=== PATIENT | female | born 1970 | race African-American/Black ===

== ENCOUNTER 2020-02-11 14:44 | Outpatient (CLI) | payer BC, SELFPAY ==
--- NOTE | ~2020-02-11 | US_ITS ---
EXAMINATION: US pelvic complete w TV DATE: 02/11/2020 15:51 INDICATION: Menorrhagia Comparison:No prior studies for comparison. TECHNIQUE: Multiple transabdominal and endovaginal sonographic images of the pelvis performed. FINDINGS: The uterus measures 11.5 x 7.4 x 10.9 cm. There are multiple uterine fibroids including a 7 .7 x 5.2 x 7 cm fibroid and a pedunculated 4.7 x 4.1 x 1 4.1 cm fibroid. The endometrial complex is o bscured by fibroid changes. The right ovary measures 6.1 x 7.2 x 6.1 cm and the left ovary measures 4.9 x 3.3 x 2.7 cm.. There is a septated right ovarian cyst measuring 4.9 x 4.3 x 4.1 cm. There are small follicles in each ovary. There is no free fluid in the pelvis. There are no abnormal masses seen on either side. IMPRESSION: 1. Enlarged fibroid uterus. 2: Septated 4.9 cm right ovarian cyst. Recommend follow-up ultrasound in 4-6 weeks to assess for re solution. Reviewed, dictated and finalized at location A. IMPRESSION: 1. Enlarged fibroid uterus. 2: Septated 4.9 cm right ovarian cyst. Recommend follow-up ultrasound in 4-6 weeks to assess for resolution.
== END 2020-02-11 14:45 | disposition home or self-care (01) ==
PROVIDERS: Visit Provider Obstetrics & Gynecology
DX: D25.9 Leiomyoma of uterus, unspecified (principal); N83.201 Unspecified ovarian cyst, right side
CPT/HCPCS: 76830; 76856

== ENCOUNTER 2020-02-18 02:22 | Day surgery (SDC) | payer BC, SELFPAY ==
[2020-02-16 08:41] VITALS: BMI 32.9
[2020-02-18 11:10] VITALS: BP 132/82; PULSE 73; RESP 16; TEMP 36.4; O2SAT 100
[2020-02-18] MEDS: LACTATED RINGERS 1,000 ML 30 ML IV CONT (11:35)
[2020-02-18 11:48] LABS: Hematocrit 28.8 % (37.0-47.0); Hemoglobin 8.1 g/dL (12.0-15.0)
--- NOTE | 2020-02-18 11:54 | WPDANESEPPF ---
Anes - Initial Pre Proc Eval Procedure: Operation Date: 02/18/20 13:00 Proposed Procedures p Hysteroscopy, Dilation and Curettage, Possible Myosure - Nacho Garcia MD Date/Time: 02/18/20 11:54 Surgeon: Nacho Garcia MD Pre Op Diagnosis: abn uterine bleeding, fibroids Patient Data Age: 49 Gender: F Height: 5 ft 2 in Weight: 83 kg Last Vital Signs Temp 36.4 C 02/18/20 11:10 Pulse 73 02/18/20 11:10 Resp 16 02/18/20 11:10 BP 132/82 02/18/20 11:10 Pulse Ox 100 02/18/20 11:10 Allergies Allergy/AdvReac Type Severity Reaction Status Date / Time No Known Allergies Allergy Verified 02/18/20 11:16 Home Medications Medication Instructions Recorded Confirmed Type docusate sodium [Colace] 100 mg PO DAILY 02/16/20 02/18/20 History ferrous sulfate [iron] 325 mg PO BID 02/16/20 02/18/20 History spironolactone 100 mg PO BID 02/16/20 02/16/20 History Laboratory Tests 02/18/20 02/18/20 11:44 11:44 Hgb 8.1 g/dL L g/dL (12.0-15.0) Hct 28.8 % L % (37.0-47.0) Sodium Pending Potassium Pending Chloride Pending Carbon Dioxide Pending BUN Pending Creatinine Pending Estim Creat Clear Calc Pending Estimated GFR Pending Glucose Pending Calcium Pending Patient hx anesthesia problems: none Family hx anesthesia problems: none [facility] Past Medical History Medical History Anemia Fibroid uterus Menorrhagia Obesity Anes - Eval Final PreProcedure Day of Procedure 02/18/20 11:54 Patient weight: obese Heart: regular rate and rhythm Lungs: clear to auscultation Airway: Mallampati scale class 1 Neurological: alert and oriented Last oral intake: >/= 8 hours ASA classification: II Emergent: no Anesthetic plan: proceed Anesthesia type and monitoring: general GIVS and standard monitoring Informed Consent: The patient's anesthetic plan and its attendant risks and benefits were discussed with the patient/family/POA. Questions were solicited and answers provided to the satisfaction of the patient/family/POA.
--- NOTE | 2020-02-18 11:55 | PM.HPGS ---
History of Present Illness History of Present Illness Consent: Risks, benefits, and alternatives have been discussed and questions answered. Patient agrees to proceed with procedure. Chief complaint: abn uterine bleeding, fibroids Narrative: Elana Morgan is a 49 year old female new to office with heavy menstrual cycles. Patient reports cycles heavy for last couple of years. patient reports symptoms of fatigue, ice craving and occasional dizziness. PMFSH Past Medical History Medical History Anemia Obesity Meds Home Medications and Allergies Home Medications Medication Instructions Recorded Confirmed Type docusate sodium [Colace] 100 mg PO DAILY 02/16/20 02/18/20 History ferrous sulfate [iron] 325 mg PO BID 02/16/20 02/18/20 History spironolactone 100 mg PO BID 02/16/20 02/16/20 History Allergies Allergy/AdvReac Type Severity Reaction Status Date / Time No Known Allergies Allergy Verified 02/18/20 11:16 Vital Signs Vital Signs - 24 hr 02/18/20 11:10 Temperature 36.4 C Pulse Rate 73 Respiratory Rate 16 Blood Pressure 132/82 Pulse Oximetry 100 Exam Const: General: no acute distress Cardio: Rate: regular rate GI: GI Palp: Yes Soft to palpation : External Female Exam: normal external appearance Assessment and Plan Assessment and plan (1) Menorrhagia: Code(s): N92.0 - Excessive and frequent menstruation with regular cycle Status: Acute Assessment and Plan: Schedule for a hystersocopy dilation and curettage risk and benefits reviewed with patient in detail. (2) Fibroid uterus: Code(s): D25.9 - Leiomyoma of uterus, unspecified Status: Acute
[2020-02-18 12:00] LABS: Blood Urea Nitrogen 12 mg/dL (7-17); Calcium 8.7 mg/dL (8.4-10.2); Carbon Dioxide 25 mmol/L (22-30); Chloride 103 mmol/L (98-107); Estimated CRCL calculation 61 ml/min; Estimated Glomerular Filt Rate > 60; Glucose 106 mg/dL (65-105); Potassium 4.5 mmol/L (3.4-5.0); Sodium 136 mmol/L (137-145)
--- NOTE | 2020-02-18 13:09 | SUR.OPER ---
600 iv fluids in and 600 iv fluids out
[2020-02-18 13:15] VITALS: BP 99/57; PULSE 75; RESP 12; TEMP 37; O2SAT 94
--- NOTE | 2020-02-18 13:15 | PM.OP ---
Procedure Note - Brief Procedure Note - Brief Date of procedure: 02/18/20 Pre-op diagnosis: abn uterine bleeding, fibroids Post-op diagnosis: same Procedure performed: hysteroscopy dilation and curettage Anesthesia: MAC and local Surgeon: Nacho Garcia MD Drains: No Packing: No Pathology: yes Complications: No immediate complications Condition: stable Disposition: PACU Findings: large uterine cavity
[2020-02-18 13:40] VITALS: BP 105/63; PULSE 70; RESP 16; O2SAT 97
[2020-02-18 14:00] VITALS: BP 105/63; PULSE 70; RESP 18
--- NOTE | 2020-03-20 11:08 | OP_ITS ---
DATE OF PROCEDURE: 02/18/2020 PREOP DIAGNOSIS: Abnormal uterine bleeding and fibroids. POSTOP DIAGNOSIS: Abnormal uterine bleeding and fibroids. PROCEDURE PERFORMED: Hysteroscopy, dilation and curettage. ANESTHESIA: MAC with paracervical block. ESTIMATED BLOOD LOSS: 10 cc. FINDINGS: Enlarged normal uterine cavity. PROCEDURE IN DETAIL: Patient was taken to the operating room, with IV running, prepped and draped in the normal sterile fashion. She was placed in a dorsal lithotomy position. [place] speculum was placed into the vagina. Anterior lip of the cervix was grasped with a single-toothed tenaculum. Cervix was injected toward 10 o'clock position with 5 cc of lidocaine and the uterus was sounded to 10 cm. The cervix was then serially dilated with Hegar dilators. Hysteroscope was introduced around a normal uterine cavity. The hysteroscope was removed and a sharp curettage was performed in all 4 quadrants of the uterus. Instruments were removed. Tenaculum site hemostatic. The patient was taken to the recovery room in stable condition. Eliel I MT: Yordy
== END 2020-02-18 14:15 | disposition home or self-care (01) ==
PROVIDERS: Anesthesiology; Visit Provider Obstetrics & Gynecology
PROC: 0U5B8ZZ Destruction of Endometrium, Via Natural or Artificial Opening Endoscopic (ICD-10-PCS; CPT 58563; principal; 2020-02-18 13:00)
DX: N92.0 Excessive and frequent menstruation with regular cycle (principal); D25.9 Leiomyoma of uterus, unspecified; D64.9 Anemia, unspecified; E66.9 Obesity, unspecified; Z68.33 Body mass index [BMI] 33.0-33.9, adult
CPT/HCPCS: 58558; 36415; 80048; 85014; 85018; 88305; A9270; J2250; J2704; J3010; J7030; J7120

== ENCOUNTER 2022-12-24 00:16 | Day surgery (SDC) | payer BC, SELFPAY ==
[2022-12-09 13:39] VITALS: BMI 32.8
[2022-12-24 06:46] VITALS: BP 134/77; PULSE 77; RESP 16; TEMP 36; O2SAT 100; BMI 34.7
[2022-12-24] MEDS: LACTATED RINGERS 1,000 ML 150 ML IV CONT (06:59)
--- NOTE | 2022-12-24 07:30 | WPDANESEPPF ---
Anes - Initial Pre Proc Eval Procedure: Operation Date: 12/24/22 08:00 Proposed Procedures p Screening Colonoscopy - Dg Espinoza MD Date/Time: 12/24/22 07:30 Surgeon: Dg Espinoza MD Pre Op Diagnosis: neoplasm screening Patient Data Age: 52 Gender: F Height: 1.57 m Weight: 86 kg Last Vital Signs Temp 36.0 C L 12/24/22 06:46 Pulse 77 12/24/22 06:46 Resp 16 12/24/22 06:46 BP 134/77 12/24/22 06:46 Pulse Ox 100 12/24/22 06:46 O2 Del Method Room Air 12/24/22 06:46 Allergies Allergy/AdvReac Type Severity Reaction Status Date / Time No Known Allergies Allergy Verified 12/24/22 06:45 Home Medications Medication Instructions Recorded Confirmed Type spironolactone 100 mg tablet 100 mg PO BID 02/16/20 12/24/22 History Patient hx anesthesia problems: none Family hx anesthesia problems: none Results Review: All pre-operative results and documents have been reviewed as part of the pre-operative evaluation. [facility] Past Medical History Medical History Anemia Fibroid uterus Menorrhagia Obesity Social History Social History Smoking status: Never smoker Substance use: never Substance use type: does not use Living arrangements: with family Spiritual care concerns: No Anes - Eval Final PreProcedure Day of Procedure 12/24/22 07:30 Patient weight: obese Heart: regular rate and rhythm Lungs: clear to auscultation Airway: Mallampati scale class II Neurological: alert and oriented Last oral intake: >/= 8 hours ASA classification: II Emergent: no Anesthetic plan: proceed Anesthesia type and monitoring: general GIVS and standard monitoring Results Review: All pre-operative results and documents have been reviewed as part of the pre-operative evaluation. Informed Consent: The patient's anesthetic plan and its attendant risks and benefits were discussed with the patient/family/POA. Questions were solicited and answers provided to the satisfaction of the patient/family/POA.
--- NOTE | 2022-12-24 07:49 | PM.HPGS ---
History of Present Illness History of Present Illness Consent: Risks, benefits, and alternatives have been discussed and questions answered. Patient agrees to proceed with procedure. Chief complaint: neoplasm screening Narrative: Elana Morgan is a 52 year old female here for first screening colonoscopy Review of Systems Constitutional: Constitutional: Denies headache(s) and Denies weakness Eyes: Eyes: Denies blurry vision ENT: Reports Normal hearing present, Denies headache(s) and Denies neck pain Cardiovascular: Cardiovascular: Denies chest pain and Denies dyspnea Respiratory: Respiratory: Denies dyspnea Gastrointestinal: Gastrointestinal: Reports no additional gastrointestinal complaints Genitourinary: Genitourinary: Denies dysuria Musculoskeletal: Musculoskeletal: Denies neck pain Integumentary/Breasts: Skin/Breast: Denies dry skin Neurologic: Reports Normal hearing present, Denies headache(s) and Denies weakness Psychiatric: Psychiatric: Denies anxiety Endocrine: Endocrine: Denies change in body appearance Hematologic/Lymphatic: Hematologic/Lymphatic: Denies easy bleeding Allergic/Immunologic: Allergic/Immunologic: Denies urticaria PMFSH Past Medical History Medical History (Updated 12/24/22 @ 08:00 by Dg Espinoza MD) Anemia Colon cancer screening Fibroid uterus Menorrhagia Obesity Social History Social History Smoking status: Never smoker Substance use: never Substance use type: does not use Living arrangements: with family Spiritual care concerns: No Meds Home Medications and Allergies Home Medications Medication Instructions Recorded Confirmed Type spironolactone 100 mg tablet 100 mg PO BID 02/16/20 12/24/22 History Allergies Allergy/AdvReac Type Severity Reaction Status Date / Time No Known Allergies Allergy Verified 12/24/22 06:45 Vital Signs Vital Signs - 24 hr 12/24/22 06:46 Temperature 96.8 F L Pulse Rate 77 Respiratory Rate 16 Blood Pressure 134/77 Pulse Oximetry 100 Oxygen Delivery Room Air Exam Const: General: comfortable and no acute distress HENMT: Face/Nose/Sinus: Normal nares present Eyes: General: appearance normal, both eyes and all related structures Neck: Neck: no JVD Resp: Auscultation: clear to auscultation bilaterally Cardio: Rate: regular rate Rhythm: regular rhythm GI: Inspection: non-distended GI Palp: Yes Soft to palpation Skin: General skin exam: normal color Neuro: General: gait normal Speech: normal speech Extrem: General: normal to inspection Psych: Mental Status: mental status grossly normal Assessment and Plan Assessment and plan (1) Colon cancer screening: Code(s): Z12.11 - Encounter for screening for malignant neoplasm of colon Status: Acute Assessment and Plan: colonoscopy
[2022-12-24 08:01] VITALS: BP 116/71; PULSE 81; RESP 20; O2SAT 99
[2022-12-24 08:11] VITALS: BP 107/67; PULSE 71; RESP 18; O2SAT 100
[2022-12-24 08:21] VITALS: BP 121/85; PULSE 72; RESP 18; O2SAT 100
== END 2022-12-24 08:36 | disposition home or self-care (01) ==
PROVIDERS: Visit Provider Internal Medicine Gastroenterology
PROC: 0DJD8ZZ Inspection of Lower Intestinal Tract, Via Natural or Artificial Opening Endoscopic (ICD-10-PCS; CPT 45378; principal; 2022-12-24 08:00)
DX: Z12.11 Encounter for screening for malignant neoplasm of colon (principal); K64.8 Other hemorrhoids; E66.9 Obesity, unspecified; Z68.34 Body mass index [BMI] 34.0-34.9, adult
CPT/HCPCS: 45378; J2704; J7120

== ENCOUNTER 2025-10-25 15:21 | Outpatient (CLI) | payer BC, SELFPAY ==
--- NOTE | ~2025-10-25 | MM_ITS ---
EXAMINATION: MM screening evans BI w mariam HISTORY: Screening. TECHNIQUE: Craniocaudal and mediolateral oblique 3-D tomosynthesis images were obtained and synthetic 2-D images were generated. CAD analysis was submitted and interpreted. COMPARISON: None available. BREAST PARENCHYMAL COMPOSITION: The breast tissue is heterogeneously dense, which may obscure small masses. FINDINGS: No suspicious masses are seen. There are no suspicious calcifications. No unexplained architectural distortion is seen. There are no skin or nipple abnormalities identified. There is no adenopathy seen on the images submitted. IMPRESSION: No mammographic evidence to suggest malignancy is seen. The patient may return to screening mammography as per ACR guidelines. BI-RADS Code: 1 - Negative. Reviewed, dictated and finalized at location B. ECTOR SHELLS
== END 2025-10-25 15:22 | disposition home or self-care (01) ==
LOC: MICIMG 15:22
PROVIDERS: PCP Obstetrics & Gynecology Gynecology; Visit Provider Obstetrics & Gynecology Gynecology
DX: Z12.31 Encounter for screening mammogram for malignant neoplasm of breast (principal)
CPT/HCPCS: 77063; 77067